=== PATIENT | female | born 2000 | race Caucasian/White ===

== ENCOUNTER 2020-11-04 18:28 | Emergency (ER) | payer OTHER ==
[2020-11-04 19:03] VITALS: BP 149/101; PULSE 82; RESP 20; TEMP 97.8
--- NOTE | 2020-11-04 20:52 | ED ---
Recheck HPI - General Chief Complaint: Recheck/Abnormal Lab/Rx Stated Complaint: possibly 8 wks preg/complications Time Seen by Provider: 11/04/20 19:26 Source: patient Mode of arrival: ambulatory Limitations: no limitations - History of Present Illness Initial Comments: Patient is a 20-year-old female presenting to the emergency department for blood work. Patient states she was following with an [facility]ENSIC AUDIT EXPERT in [place] over the past few weeks as she had a positive test the end of August. Patient states they ordered an ultrasound which she had done today and [place], she was called to say that they did see a yolk sac but no viable yet. They recommended her going into an ER to check her quantitative level as well as her blood type. This would be patient's first . She's had no abdominal cramping, no vaginal bleeding, no fevers or chills. She denies any dysuria. She denies any chest pain or shortness of breath. She has no further complaints at this time. - Related Data Home Medications Medication Instructions Recorded Confirmed No Known Home Medications 02/03/16 02/03/16 Allergies Allergy/AdvReac Type Severity Reaction Status Date / Time No Known Allergies Allergy Verified 11/04/20 18:38 Review of Systems ROS Statement: Those systems with pertinent positive or pertinent negative responses have been documented in the HPI. ROS Other: All systems not noted in ROS Statement are negative. Past Medical History Past Medical History: No Reported History History of Any Multi-Drug Resistant Organisms: None Reported Past Surgical History: No Surgical Hx Reported Past Psychological History: No Psychological Hx Reported Smoking Status: Never smoker Past Alcohol Use History: None Reported Past Drug Use History: None Reported General Exam - General Exam Comments Initial Comments: GENERAL: Patient is well-developed and well-nourished. Patient is nontoxic and in no acute distress. HEAD: Atraumatic, normocephalic. EYES: Pupils equal round and reactive to light, extraocular movements intact, sclera anicteric, conjunctiva are normal. Eyelids were unremarkable. ENT: TMs normal, nares patent, oropharynx clear without exudates. Moist mucous membranes. NECK: Normal range of motion, supple without lymphadenopathy or JVD. LUNGS: Unlabored respirations. Breath sounds clear to auscultation bilaterally and equal. No wheezes rales or rhonchi. HEART: Regular rate and rhythm without murmurs, rubs or gallops. ABDOMEN: Soft, nontender, normoactive bowel sounds. No guarding, no rebound. No masses appreciated. : Deferred MUSCULOSKELETAL: Normal extremities with adequate strength and normal range of motion, no pitting or edema. No clubbing or cyanosis. NEUROLOGICAL: Patient is alert and oriented x 3. Motor and sensory are also intact. Cranial nerves II through XII grossly intact. Symmetrical smile. Normal speech, normal gait. PSYCH: Normal mood, normal affect. SKIN: Warm, Dry, normal turgor, no rashes or lesions noted. Limitations: no limitations Course Vital Signs 11/04/20 18:31 Temperature 97.8 F Pulse Rate 82 Respiratory 20 Rate Blood Pressure 149/101 O2 Sat by Pulse 100 Oximetry Medical Decision Making - Medical Decision Making Patient is a 20-year-old female sent in for blood work from her OBs office. She did have an ultrasound today, showed a yolk sac but no viable IUP as of yet. Patient has no complaints today, no vaginal bleeding, no cramping, no abdominal pain. Her exam is unremarkable. Patients blood type was checked and is O+, hCG Quant is 18,000. She'll be given a lab slip to have her hCG levels rechecked in 48 hours. I will also give her referral for a local [employer] AUDIT EXPERT as she has recently moved to the area. Return parameters were discussed with the patient she verbalized understanding. She is stable for discharge. Case discussed with Dr. Salamanca. - Lab Data Lab Results 11/04/20 11/04/20 Range/Units 19:47 19:47 HCG, Quant 11743.8 mIU/mL Blood Type O Positive Blood Type Recheck No Previous Record Bld Type Recheck Status [facility] ONLY Disposition Clinical Impression: Disposition: HOME SELF-CARE Condition: Stable Instructions (If sedation given, give patient instructions): (ED) Additional Instructions: Please return to the Emergency Department if symptoms worsen or any other concerns. HCG quantitative level today is 18,000. Please have blood work drawn in 48 hours as discussed. Follow-up with your [employer]ENSIC AUDIT EXPERT. Is patient prescribed a controlled substance at d/c from ED?: No Referrals: None,Stated [Primary Care Provider] - 1-2 days Monika Smith MD [STAFF PHYSICIAN] - 1-2 days Time of Disposition: 20:52
== END 2020-11-04 20:58 | disposition home or self-care (01) ==
LOC: EC 18:28
DX: Z34.90 Encounter for supervision of normal pregnancy, unspecified, unspecified trimester (principal)
CPT/HCPCS: 36415; 84702; 86900; 86901; 99282

== ENCOUNTER → 2020-11-09 | Outpatient (CLI) | payer OTHER | END | disposition home or self-care (01) | LOC: LABWHC1 13:50 | PROVIDERS: ATTEND Specialist/Technologist Athletic Trainer | DX: O20.0 Threatened abortion (principal); Z3A.00 Weeks of gestation of pregnancy not specified | CPT/HCPCS: 36415; 84702 ==

== ENCOUNTER 2020-11-16 06:50 | Emergency (ER) | payer OTHER ==
--- NOTE | 2020-11-16 08:10 | US ---
EXAMINATION TYPE: Transabdominal DATE OF EXAM: 11/16/2020 7:46 AM COMPARISON: NONE CLINICAL HISTORY: bleeding. Vaginal bleeding today; HTN EXAM PERFORMED: Transvaginal (TV) and Transabdominal (TA) EXAM MEASUREMENTS: GESTATIONAL AGE / DATING Physician Established: Not yet established Dates by LMP: unsure LMP EDC: Dates by First Scan: No previous here this is first scan Dates by Current Scan for: No IUP seen at this time MATERNAL ANATOMY Uterus: 9.0 x 5.5 x 5.2cm Right Ovary: 2.7 x 2.4 x 1.4cm Left Ovary: not seen Post CDS / Adnexa: wnl Presence of free fluid: in posterior cul de sac = 1.4 x 3.5 x 1.2cm Presence of corpus luteal cyst: not seen GESTATION / SURVEY IUP: No IUP seen. Complex endometrial fluid area seen in lower uterus and cervix with internal vascu larity noted = 3.2 x 2.2 x 3.0cm. Date of LMP: patient thinks it was 08/17/2020. Beta HcG (if available): IMPRESSION: No visible Intrauterine . Findings may reflect spontaneous in progress. Normal barbara y IUP however is not excluded as well as ectopic . Correlate with serial beta hCG and/or ult rasound.
--- NOTE | 2020-11-16 08:18 | ED ---
General Adult HPI - General Chief complaint: Vaginal Bleeding Stated complaint: Possible Miscarriage Time Seen by Provider: 11/16/20 06:56 Source: patient, family, RN notes reviewed Mode of arrival: ambulatory Limitations: no limitations - History of Present Illness Initial comments: This a 20-year-old female presents emergency Department chief complaint of vaginal bleeding early . Patient states she is late bleeding yesterday worsened this morning. Patiently is A0 approximately 70 weeks . Patient had an ultrasound proximal one week ago which showed intrauterine gestational sac. Patient states her hCG was climbing. Patient has not seen QUALITY CONTROL AUDITOR. Patient states that the bleeding is like heavy menstrual cycle currently. No lightheadedness or chest pain or shortness of breath. Patient states is O+ blood type. Patient offers no complaints. - Related Data Home Medications Medication Instructions Recorded Confirmed No Known Home Medications 02/03/16 02/03/16 Allergies Allergy/AdvReac Type Severity Reaction Status Date / Time No Known Allergies Allergy Verified 11/16/20 06:55 Review of Systems ROS Statement: Those systems with pertinent positive or pertinent negative responses have been documented in the HPI. ROS Other: All systems not noted in ROS Statement are negative. Past Medical History Past Medical History: No Reported History History of Any Multi-Drug Resistant Organisms: None Reported Past Surgical History: No Surgical Hx Reported Past Psychological History: No Psychological Hx Reported Smoking Status: Never smoker Past Alcohol Use History: None Reported Past Drug Use History: None Reported General Exam Limitations: no limitations General appearance: alert, in no apparent distress Head exam: Present: atraumatic, normocephalic, normal inspection Eye exam: Present: normal appearance, PERRL, EOMI. Absent: scleral icterus, conjunctival injection, periorbital swelling Respiratory exam: Present: normal lung sounds bilaterally. Absent: respiratory distress, wheezes, rales, rhonchi, stridor Cardiovascular Exam: Present: regular rate, normal rhythm, normal heart sounds. Absent: systolic murmur, diastolic murmur, rubs, gallop, clicks GI/Abdominal exam: Present: soft, normal bowel sounds. Absent: distended, tenderness, guarding, rebound, rigid Neurological exam: Present: alert Course Vital Signs 11/16/20 06:51 Temperature 97.9 F Pulse Rate 81 Respiratory 22 Rate Blood Pressure 138/87 O2 Sat by Pulse 98 Oximetry Medical Decision Making - Medical Decision Making Patient also on today's does not reveal any intrauterine . Patient had a prior ultrasound showed intrauterine . Patient's symptoms are consistent with miscarriage. Patient we discharged with follow-up with [facility]AL[facility] [employer]OL AUDITOR. Patient informed to have repeat lab work. Disposition Clinical Impression: Miscarriage Disposition: HOME SELF-CARE Condition: Stable Instructions (If sedation given, give patient instructions): Miscarriage (ED) Additional Instructions: Please return to the Emergency Department if symptoms worsen or any other concerns. Is patient prescribed a controlled substance at d/c from ED?: No Referrals: None,Stated [Primary Care Provider] - 1-2 days Time of Disposition: 08:17
[2020-11-16 09:01] VITALS: RESP 18
[2020-11-16 09:13] VITALS: BP 130/88; PULSE 88; TEMP 98.1
[2020-11-16 09:26] LABS: Appearance,Urine Clear (Clear); Bilirubin,Urine Negative (Negative); Blood,Urine Large (Negative); Color,Urine Red; Glucose,Urine (UA) Negative (Negative); Ketones,Urine Trace (Negative); Leukocyte Esterase,Urine Small (Negative); Mucus,Urine Many /hpf; Nitrite,Urine Negative (Negative); PH, Urine 5.5 (5.0-8.0); Protein,Urine 1+ (Negative); RBC,Urine >182 /hpf (0-5); Specific Gravity,Urine 1.023 (1.001-1.035); Urobilinogen,Urine <2.0 mg/dL (<2.0); WBC,Urine 13 /hpf (0-5)
== END 2020-11-16 09:02 | disposition home or self-care (01) ==
LOC: EC 06:50
DX: O03.9 Complete or unspecified spontaneous abortion without complication (principal); Z3A.00 Weeks of gestation of pregnancy not specified
CPT/HCPCS: 76801; 76817; 81001; 81025; 87086; 99284

== ENCOUNTER 2022-12-31 10:07 | Emergency (ER) | payer OTHER ==
[2022-12-31 11:24] LABS: Appearance,Urine Clear (Clear); Bilirubin,Urine Negative (Negative); Blood,Urine Moderate (Negative); Color,Urine Light Yellow; Glucose,Urine (UA) Negative (Negative); Ketones,Urine 2+ (Negative); Leukocyte Esterase,Urine Negative (Negative); Mucus,Urine Few /hpf; Nitrite,Urine Negative (Negative); PH, Urine 5.5 (5.0-8.0); Protein,Urine 1+ (Negative); RBC,Urine 3 /hpf (0-5); Specific Gravity,Urine 1.011 (1.001-1.035); Squamous Epithelial Cell,Urine 1 /hpf (0-4); Urobilinogen,Urine <2.0 mg/dL (<2.0); WBC,Urine 3 /hpf (0-5)
[2022-12-31] MEDS ORDERED: ONDANSETRON ODT 4 MG TAB PO STA (11:50)
--- NOTE | 2022-12-31 11:52 | ED ---
General Adult HPI - General Chief complaint: Abdominal Pain Stated complaint: Vomitting Time Seen by Provider: 12/31/22 11:38 Source: patient, RN notes reviewed Mode of arrival: ambulatory Limitations: no limitations - History of Present Illness Initial comments: 22-year-old female who presents the emergency department with a chief complaint of vomiting. She reports that she had multiple episodes of vomiting that started at 0100 this morning. She reports her symptoms started at 0700. She did not take anything for his symptoms. She denies any recent sick contacts. She denies any fevers, chills, nasal congestion, sore throat, cough, chest pain, shortness of breath, abdominal pain, dysuria, hematuria. Last bowel movement was this morning and was normal for her. She denies eating any foods that may have caused this. She reports that she still has her gallbladder and appendix. - Related Data Home Medications Medication Instructions Recorded Confirmed No Known Home Medications 02/03/16 02/03/16 Allergies Allergy/AdvReac Type Severity Reaction Status Date / Time No Known Allergies Allergy Verified 12/31/22 10:54 Review of Systems ROS Statement: Those systems with pertinent positive or pertinent negative responses have been documented in the HPI. ROS Other: All systems not noted in ROS Statement are negative. Past Medical History Past Medical History: No Reported History History of Any Multi-Drug Resistant Organisms: None Reported Past Surgical History: No Surgical Hx Reported Past Psychological History: No Psychological Hx Reported Smoking Status: Never smoker Past Alcohol Use History: None Reported Past Drug Use History: None Reported General Exam - General Exam Comments Initial Comments: General: Alert, in no acute distress Head: atraumatic normocephalic. Eyes PERRL, EOMI intact, mucous membranes moist Respiratory: Lungs clear to auscultation bilaterally Cardiovascular: Heart rate regular rate and rhythm Abdominal: Soft without guarding or rebound Extremities: Normal inspection with full range of motion and normal capillary refill Neuroogic: alert and oriented 3, CN II-XII intact, able to ambulate with steady gait Skin: warm dry and intact with normal color Limitations: no limitations Course Vital Signs 12/31/22 12/31/22 10:52 14:24 Temperature 97.9 F 97.8 F Pulse Rate 62 51 L Respiratory 20 16 Rate Blood Pressure 139/82 151/89 O2 Sat by Pulse 100 98 Oximetry Medical Decision Making - Medical Decision Making Was pt. sent in by a medical professional or institution ([facility], [facility], urgent care, hospital, or halfway...) When possible be specific @ -[No] Did you speak to anyone other than the patient for history (EMS, parent, family, police, friend...)? What history was obtained from this source @ -[No] Did you review nursing and triage notes (agree or disagree)? Why? @ -[I reviewed and agree with nursing and triage notes] Were old charts reviewed (outside hosp., previous admission, EMS record, old EKG, old radiological studies, urgent care reports/EKG's, halfway records)? Report findings @ -[No old charts were reviewed] Differential Diagnosis (chest pain, altered mental status, abdominal pain women, abdominal pain men, vaginal bleeding, weakness, fever, dyspnea, syncope, headache, dizziness, GI bleed, back pain, seizure, CVA, palpatations, mental health, musculoskeletal)? @ -[not applicable] EKG interpreted by me (3pts min.). @ -[As above] X-rays interpreted by me (1pt min.). @ -[None done] CT interpreted by me (1pt min.). @ -[None done] U/S interpreted by me (1pt. min.). @ -[None done] What testing was considered but not performed or refused? (CT, X-rays, U/S, labs)? Why? @ -Abdominal imaging was considered however patient reports no active symptoms during the course of the ED. What meds were considered but not given or refused? Why? @ -[None] Did you discuss the management of the patient with other professionals (professionals i.e. [facility] Barbosa, [facility], lab, RT, psych nurse, psychologist social, assistant district attorney, teacher, chief contract officer, assistant case manager)? Give summary @ -[No] Was smoking cessation discussed for >3mins.? @ -[No] Was critical care preformed (if so, how long)? @ -[No] Were there social determinants of health that impacted care today? How? (Homeles sness, low income, unemployed, alcoholism, drug addiction, transportation, low edu. Level, literacy, decrease access to med. care, [facility], rehab)? @ -[No] Was there de-escalation of care discussed even if they declined (Discuss DNR or withdrawal of care, Hospice)? DNR status @ -[No] What co-morbidities impacted this encounter? (DM, HTN, Smoking, COPD, CAD, Cancer, CVA, ARF, Chemo, Hep., AIDS, mental health diagnosis, sleep apnea, morbid obesity)? @ -[None] Was patient admitted / discharged? Hospital course, mention meds given and route, prescriptions, significant lab abnormalities, going to OR and other pertinent info. @ -Discharged. This is a 22-year-old Caucasain female who presents to the emergency department with nasuea and vomiting.. Patient had a thorough history and physical exam performed on the ED. Physical exam is essentially unremarkable. Heart rate regular rate and rhythm, lungs are to auscultation bilaterally, abdomen soft and nontender. Patient able to ambulate with a steady gait. No focal neuro deficits noted. Patient denies any active symptoms during the course of the emergency department. I discussed the results in detail with the patient verbalized understanding and all questions were addressed. Patient was given zofran starter pack symptomatic relief on the ED. Return precautions were discussed at length. Patient discharged in stable condition. Case discussed with Dr. Bird , [facility] who agrees with plan of care Undiagnosed new problem with uncertain prognosis? @ -[No] Drug Therapy requiring intensive monitoring for toxicity (Heparin, Nitro, Insulin, Cardizem)? @ -[No] Were any procedures done? @ -[No] Diagnosis/symptom? @ -Nausea and vomiting Acute, or Chronic, or Acute on Chronic? @ -Acute Uncomplicated (without systemic symptoms) or Complicated (systemic symptoms)? @ -Uncomplicated Side effects of treatment? @ -[No] Exacerbation, Progression, or Severe Exacerbation? @ -[No] Poses a threat to life or bodily function? How? (Chest pain, [place], SD, pneumonia, PE, COPD, DKA, ARF, appy, cholecystitis, CVA, Diverticulitis, Homicidal, Suicidal, threat to staff... and all critical care pts) @ -Low likelihood - Lab Data Lab Results 12/31/22 12/31/22 12/31/22 Range/Units 11:01 11:01 12:12 Urine Color Light Yellow Urine Appearance Clear (Clear) Urine pH 5.5 (5.0-8.0) Ur Specific [place] 1.011 (1.001-1.035) Urine Protein 1+ H (Negative) Urine Glucose (UA) Negative (Negative) Urine Ketones 2+ H (Negative) Urine Blood Moderate H (Negative) Urine Nitrite Negative (Negative) Urine Bilirubin Negative (Negative) Urine Urobilinogen <2.0 (<2.0) mg/dL Ur Leukocyte Esterase Negative (Negative) Urine RBC 3 (0-5) /hpf Urine WBC 3 (0-5) /hpf Ur Squamous Epith Cells 1 (0-4) /hpf Urine Mucus Few H (None) /hpf Urine HCG, Qual Not Detected (Not Detectd) Influenza Type A (PCR) Not Detected (Not Detectd) Influenza Type B (PCR) Not Detected (Not Detectd) RSV (PCR) Not Detected (Not Detectd) SARS-CoV-2 (PCR) Not Detected (Not Detectd) Disposition Clinical Impression: Nausea Disposition: HOME SELF-CARE Condition: Stable Additional Instructions: These return to the nearest emergency department if symptoms worsen or persist Is patient prescribed a controlled substance at d/c from ED?: No Referrals: None,Stated [Primary Care Provider] - 1-2 days Time of Disposition: 13:56
[2022-12-31] MEDS ORDERED: ONDANSETRON 4 MG ODT STARTER PACK 2 TAB BTL PO STA (13:57)
[2022-12-31 14:26] VITALS: BP 151/89; PULSE 51; RESP 16; TEMP 97.8
== END 2022-12-31 14:26 | disposition home or self-care (01) ==
LOC: EC 10:07
DX: R11.2 Nausea with vomiting, unspecified (principal); Z20.822 Contact with and (suspected) exposure to COVID-19
CPT/HCPCS: 81001; 81025; 87636; 99284; S0119